=== PATIENT | male | born 1980 | race Caucasian/White ===

== ENCOUNTER 2021-08-16 20:03 | Emergency (ER) | payer BC ==
[~2021-08-16] VITALS: Ht 188 cm; Wt 95.2 kg
[~2021-08-16 20:03] MED LIST: CLOT10 SS; FLUC100 PO; METF500 PO; PARO20 PO; Zofran Odt4 MG SL
== END 2021-08-16 21:00 | disposition home or self-care (01) ==
LOC: ER 20:03
DX: S91.012A Laceration without foreign body, left ankle, initial encounter (principal); E11.9 Type 2 diabetes mellitus without complications; F17.200 Nicotine dependence, unspecified, uncomplicated; Z23 Encounter for immunization; Z79.84 Long term (current) use of oral hypoglycemic drugs; W25.XXXA Contact with sharp glass, initial encounter
CPT/HCPCS: 73610; 90471; 90714; 99283-25

== ENCOUNTER 2022-09-18 01:17 | Day surgery (SDC) | payer BC | END 2022-09-18 22:38 | disposition home or self-care (01) | LOC: WOUND 01:17 | DX: E11.621 Type 2 diabetes mellitus with foot ulcer (principal); L97.522 Non-pressure chronic ulcer of other part of left foot with fat layer exposed; I87.2 Venous insufficiency (chronic) (peripheral); L03.116 Cellulitis of left lower limb; I87.332 Chronic venous hypertension (idiopathic) with ulcer and inflammation of left lower extremity; E11.51 Type 2 diabetes mellitus with diabetic peripheral angiopathy without gangrene | CPT/HCPCS: A9270; G0463 ==

== ENCOUNTER 2022-10-02 01:21 | Day surgery (SDC) | payer BC | END 2022-10-02 22:45 | disposition home or self-care (01) | LOC: WOUND 01:21 | DX: E11.621 Type 2 diabetes mellitus with foot ulcer (principal); L97.522 Non-pressure chronic ulcer of other part of left foot with fat layer exposed; L97.422 Non-pressure chronic ulcer of left heel and midfoot with fat layer exposed; I87.312 Chronic venous hypertension (idiopathic) with ulcer of left lower extremity; E11.43 Type 2 diabetes mellitus with diabetic autonomic (poly)neuropathy; I87.2 Venous insufficiency (chronic) (peripheral) ==

== ENCOUNTER 2022-10-23 01:02 | Day surgery (SDC) | payer BC | END 2022-10-23 22:56 | disposition home or self-care (01) | LOC: WOUND 01:02 | DX: E11.621 Type 2 diabetes mellitus with foot ulcer (principal); L97.522 Non-pressure chronic ulcer of other part of left foot with fat layer exposed; I87.332 Chronic venous hypertension (idiopathic) with ulcer and inflammation of left lower extremity; I87.2 Venous insufficiency (chronic) (peripheral); E11.43 Type 2 diabetes mellitus with diabetic autonomic (poly)neuropathy | CPT/HCPCS: 99406; A9270 ==

== ENCOUNTER 2022-11-15 01:57 | Day surgery (SDC) | payer BC | END 2022-11-15 22:46 | disposition home or self-care (01) | LOC: WOUND 01:57 | DX: E11.621 Type 2 diabetes mellitus with foot ulcer (principal); L97.522 Non-pressure chronic ulcer of other part of left foot with fat layer exposed; I87.332 Chronic venous hypertension (idiopathic) with ulcer and inflammation of left lower extremity; I87.2 Venous insufficiency (chronic) (peripheral); E11.43 Type 2 diabetes mellitus with diabetic autonomic (poly)neuropathy; Z72.0 Tobacco use | CPT/HCPCS: 99406; A9270; G0463 ==

== ENCOUNTER 2022-11-20 00:31 | Day surgery (SDC) | payer BC | END 2022-11-20 23:04 | disposition home or self-care (01) | LOC: WOUND 00:31 | DX: E11.621 Type 2 diabetes mellitus with foot ulcer (principal); L97.522 Non-pressure chronic ulcer of other part of left foot with fat layer exposed; I87.332 Chronic venous hypertension (idiopathic) with ulcer and inflammation of left lower extremity; I87.2 Venous insufficiency (chronic) (peripheral); E11.43 Type 2 diabetes mellitus with diabetic autonomic (poly)neuropathy; Z72.0 Tobacco use | CPT/HCPCS: A9270 ==

== ENCOUNTER 2022-12-06 02:43 | Day surgery (SDC) | payer BC | END 2022-12-06 22:47 | disposition home or self-care (01) | LOC: WOUND 02:43 | DX: E11.621 Type 2 diabetes mellitus with foot ulcer (principal); L97.522 Non-pressure chronic ulcer of other part of left foot with fat layer exposed; I87.332 Chronic venous hypertension (idiopathic) with ulcer and inflammation of left lower extremity; I87.2 Venous insufficiency (chronic) (peripheral); E11.43 Type 2 diabetes mellitus with diabetic autonomic (poly)neuropathy; Z72.0 Tobacco use; I10 Essential (primary) hypertension | CPT/HCPCS: 99406; A9270 ==

== ENCOUNTER 2023-01-03 01:09 | Day surgery (SDC) | payer BC | END 2023-01-03 22:42 | disposition home or self-care (01) | LOC: WOUND 01:09 | DX: E11.621 Type 2 diabetes mellitus with foot ulcer (principal); L97.525 Non-pressure chronic ulcer of other part of left foot with muscle involvement without evidence of necrosis; I87.332 Chronic venous hypertension (idiopathic) with ulcer and inflammation of left lower extremity; I87.2 Venous insufficiency (chronic) (peripheral); E11.43 Type 2 diabetes mellitus with diabetic autonomic (poly)neuropathy; I10 Essential (primary) hypertension; Z72.0 Tobacco use | CPT/HCPCS: 99406; A9270; G0463 ==

== ENCOUNTER 2023-01-17 01:43 | Day surgery (SDC) | payer BC | END 2023-01-17 22:52 | disposition home or self-care (01) | LOC: WOUND 01:43 | DX: E11.621 Type 2 diabetes mellitus with foot ulcer (principal); L97.525 Non-pressure chronic ulcer of other part of left foot with muscle involvement without evidence of necrosis; L97.522 Non-pressure chronic ulcer of other part of left foot with fat layer exposed; I87.332 Chronic venous hypertension (idiopathic) with ulcer and inflammation of left lower extremity; I87.2 Venous insufficiency (chronic) (peripheral); E11.43 Type 2 diabetes mellitus with diabetic autonomic (poly)neuropathy; Z72.0 Tobacco use; I10 Essential (primary) hypertension | CPT/HCPCS: 99406; A9270; G0463 ==

== ENCOUNTER 2023-02-21 03:42 | Day surgery (SDC) | payer BC | END 2023-02-21 22:42 | disposition home or self-care (01) | LOC: WOUND 03:42 | DX: E11.621 Type 2 diabetes mellitus with foot ulcer (principal); L97.525 Non-pressure chronic ulcer of other part of left foot with muscle involvement without evidence of necrosis; L97.522 Non-pressure chronic ulcer of other part of left foot with fat layer exposed; I87.332 Chronic venous hypertension (idiopathic) with ulcer and inflammation of left lower extremity; I87.2 Venous insufficiency (chronic) (peripheral); E11.43 Type 2 diabetes mellitus with diabetic autonomic (poly)neuropathy; I10 Essential (primary) hypertension; Z72.0 Tobacco use | CPT/HCPCS: A9270; G0463 ==

== ENCOUNTER 2023-02-28 02:56 | Day surgery (SDC) | payer BC | END 2023-02-28 22:56 | disposition home or self-care (01) | LOC: WOUND 02:56 | DX: E11.621 Type 2 diabetes mellitus with foot ulcer (principal); I87.332 Chronic venous hypertension (idiopathic) with ulcer and inflammation of left lower extremity; I87.2 Venous insufficiency (chronic) (peripheral); E11.43 Type 2 diabetes mellitus with diabetic autonomic (poly)neuropathy; Z72.0 Tobacco use; I10 Essential (primary) hypertension; L97.929 Non-pressure chronic ulcer of unspecified part of left lower leg with unspecified severity | CPT/HCPCS: 99406; G0463 ==

== ENCOUNTER 2023-03-22 01:09 | Day surgery (SDC) | payer BC | END 2023-03-22 22:39 | disposition home or self-care (01) | LOC: WOUND 01:09 | DX: E11.621 Type 2 diabetes mellitus with foot ulcer (principal); L97.522 Non-pressure chronic ulcer of other part of left foot with fat layer exposed; I87.2 Venous insufficiency (chronic) (peripheral); I87.332 Chronic venous hypertension (idiopathic) with ulcer and inflammation of left lower extremity; E11.43 Type 2 diabetes mellitus with diabetic autonomic (poly)neuropathy; Z72.0 Tobacco use; I10 Essential (primary) hypertension | CPT/HCPCS: G0463 ==

== ENCOUNTER 2023-04-05 19:11 | Emergency (ER) | payer BC ==
[~2023-04-05] VITALS: Ht 188 cm; Wt 104.3 kg
[2023-04-05 19:47] VITALS: BP 151/102
[2023-04-05] MEDS ORDERED: ERYT.5TO LEFTEYE (21:56)
== END 2023-04-05 22:10 | disposition home or self-care (01) ==
LOC: ER 19:11
DX: S05.12XA Contusion of eyeball and orbital tissues, left eye, initial encounter (principal); W45.8XXA Other foreign body or object entering through skin, initial encounter; Y93.89 Activity, other specified; F17.200 Nicotine dependence, unspecified, uncomplicated
CPT/HCPCS: 70200; 99283-25; A9270

== ENCOUNTER 2023-04-12 03:13 | Day surgery (SDC) | payer BC ==
[~2023-04-12 03:13] MED LIST changes: +ERYT.5TO LEFTEYE
== END 2023-04-12 22:46 | disposition home or self-care (01) ==
LOC: WOUND 03:13
DX: E11.621 Type 2 diabetes mellitus with foot ulcer (principal); L97.522 Non-pressure chronic ulcer of other part of left foot with fat layer exposed; I87.2 Venous insufficiency (chronic) (peripheral); I87.332 Chronic venous hypertension (idiopathic) with ulcer and inflammation of left lower extremity; E11.43 Type 2 diabetes mellitus with diabetic autonomic (poly)neuropathy; Z72.0 Tobacco use; I10 Essential (primary) hypertension

== ENCOUNTER 2023-04-15 02:24 | Day surgery (SDC) | payer BC | END 2023-04-15 22:48 | disposition home or self-care (01) | LOC: WOUND 02:24 | DX: E11.621 Type 2 diabetes mellitus with foot ulcer (principal); I87.2 Venous insufficiency (chronic) (peripheral); L97.522 Non-pressure chronic ulcer of other part of left foot with fat layer exposed; Z72.0 Tobacco use; I10 Essential (primary) hypertension; E11.43 Type 2 diabetes mellitus with diabetic autonomic (poly)neuropathy | CPT/HCPCS: 99406; Q4133 ==

== ENCOUNTER 2023-04-17 02:54 | Day surgery (SDC) | payer BC | END 2023-04-17 22:50 | disposition home or self-care (01) | LOC: WOUND 02:54 | DX: E11.621 Type 2 diabetes mellitus with foot ulcer (principal); L97.525 Non-pressure chronic ulcer of other part of left foot with muscle involvement without evidence of necrosis; L97.522 Non-pressure chronic ulcer of other part of left foot with fat layer exposed; I87.332 Chronic venous hypertension (idiopathic) with ulcer and inflammation of left lower extremity; I87.2 Venous insufficiency (chronic) (peripheral); E11.43 Type 2 diabetes mellitus with diabetic autonomic (poly)neuropathy; I10 Essential (primary) hypertension; Z72.0 Tobacco use | CPT/HCPCS: 99406 ==

== ENCOUNTER 2023-04-24 02:26 | Day surgery (SDC) | payer BC | END 2023-04-24 23:08 | disposition home or self-care (01) | LOC: WOUND 02:26 | DX: E11.621 Type 2 diabetes mellitus with foot ulcer (principal); I87.332 Chronic venous hypertension (idiopathic) with ulcer and inflammation of left lower extremity; I87.2 Venous insufficiency (chronic) (peripheral); E11.43 Type 2 diabetes mellitus with diabetic autonomic (poly)neuropathy; Z72.0 Tobacco use; I10 Essential (primary) hypertension | CPT/HCPCS: A9270; Q4133 ==

== ENCOUNTER 2023-05-01 05:30 | Day surgery (SDC) | payer BC | END 2023-05-01 22:44 | disposition home or self-care (01) | LOC: WOUND 05:30 | DX: E11.621 Type 2 diabetes mellitus with foot ulcer (principal); L97.512 Non-pressure chronic ulcer of other part of right foot with fat layer exposed; I87.332 Chronic venous hypertension (idiopathic) with ulcer and inflammation of left lower extremity; I87.2 Venous insufficiency (chronic) (peripheral); E11.43 Type 2 diabetes mellitus with diabetic autonomic (poly)neuropathy; Z72.0 Tobacco use; I10 Essential (primary) hypertension | CPT/HCPCS: 99406 ==

== ENCOUNTER 2023-05-08 02:52 | Day surgery (SDC) | payer BC | END 2023-05-08 22:52 | disposition home or self-care (01) | LOC: WOUND 02:52 | DX: E11.621 Type 2 diabetes mellitus with foot ulcer (principal); L97.522 Non-pressure chronic ulcer of other part of left foot with fat layer exposed; I87.2 Venous insufficiency (chronic) (peripheral); I87.332 Chronic venous hypertension (idiopathic) with ulcer and inflammation of left lower extremity; E11.43 Type 2 diabetes mellitus with diabetic autonomic (poly)neuropathy; Z72.0 Tobacco use; I10 Essential (primary) hypertension | CPT/HCPCS: 99406 ==

== ENCOUNTER 2023-05-15 01:12 | Day surgery (SDC) | payer BC | END 2023-05-15 22:47 | disposition home or self-care (01) | LOC: WOUND 01:12 | DX: E11.621 Type 2 diabetes mellitus with foot ulcer (principal); L97.422 Non-pressure chronic ulcer of left heel and midfoot with fat layer exposed; L97.522 Non-pressure chronic ulcer of other part of left foot with fat layer exposed; I87.332 Chronic venous hypertension (idiopathic) with ulcer and inflammation of left lower extremity; I87.2 Venous insufficiency (chronic) (peripheral); E11.43 Type 2 diabetes mellitus with diabetic autonomic (poly)neuropathy; Z72.0 Tobacco use; I10 Essential (primary) hypertension | CPT/HCPCS: 99406; A9270 ==

== ENCOUNTER 2023-05-22 02:15 | Day surgery (SDC) | payer BC | END 2023-05-22 23:01 | disposition home or self-care (01) | LOC: WOUND 02:15 | DX: E11.621 Type 2 diabetes mellitus with foot ulcer (principal); L97.522 Non-pressure chronic ulcer of other part of left foot with fat layer exposed; I87.332 Chronic venous hypertension (idiopathic) with ulcer and inflammation of left lower extremity; I87.2 Venous insufficiency (chronic) (peripheral); E11.43 Type 2 diabetes mellitus with diabetic autonomic (poly)neuropathy; Z72.0 Tobacco use; I10 Essential (primary) hypertension | CPT/HCPCS: 99406 ==

== ENCOUNTER 2023-06-05 04:42 | Day surgery (SDC) | payer BC | END 2023-06-05 22:47 | disposition home or self-care (01) | LOC: WOUND 04:42 | DX: I87.332 Chronic venous hypertension (idiopathic) with ulcer and inflammation of left lower extremity (principal); E11.621 Type 2 diabetes mellitus with foot ulcer; E11.43 Type 2 diabetes mellitus with diabetic autonomic (poly)neuropathy; I10 Essential (primary) hypertension; Z72.0 Tobacco use | CPT/HCPCS: 99406; G0463 ==

== ENCOUNTER 2024-04-02 02:34 | Day surgery (SDC) | payer BC ==
[~2024-04-02 02:34] MED LIST changes: +OMEP20ER
== END 2024-04-03 22:47 | disposition home or self-care (01) ==
LOC: WOUND 02:34
DX: E11.621 Type 2 diabetes mellitus with foot ulcer (principal); L97.522 Non-pressure chronic ulcer of other part of left foot with fat layer exposed; F17.210 Nicotine dependence, cigarettes, uncomplicated; I87.332 Chronic venous hypertension (idiopathic) with ulcer and inflammation of left lower extremity; E11.43 Type 2 diabetes mellitus with diabetic autonomic (poly)neuropathy; E11.51 Type 2 diabetes mellitus with diabetic peripheral angiopathy without gangrene; I87.2 Venous insufficiency (chronic) (peripheral); I10 Essential (primary) hypertension
CPT/HCPCS: G0463

== ENCOUNTER 2024-04-09 03:13 | Day surgery (SDC) | payer BC | END 2024-04-09 22:54 | disposition home or self-care (01) | LOC: WOUND 03:13 | DX: E11.621 Type 2 diabetes mellitus with foot ulcer (principal); L97.522 Non-pressure chronic ulcer of other part of left foot with fat layer exposed; I87.332 Chronic venous hypertension (idiopathic) with ulcer and inflammation of left lower extremity; E11.43 Type 2 diabetes mellitus with diabetic autonomic (poly)neuropathy; I10 Essential (primary) hypertension; Z72.0 Tobacco use | CPT/HCPCS: 99406; G0463 ==

== ENCOUNTER 2024-04-17 03:47 | Day surgery (SDC) | payer BC | END 2024-04-17 22:58 | disposition home or self-care (01) | LOC: WOUND 03:47 | DX: E11.621 Type 2 diabetes mellitus with foot ulcer (principal); L97.522 Non-pressure chronic ulcer of other part of left foot with fat layer exposed; E11.43 Type 2 diabetes mellitus with diabetic autonomic (poly)neuropathy; I87.332 Chronic venous hypertension (idiopathic) with ulcer and inflammation of left lower extremity; I10 Essential (primary) hypertension; F17.200 Nicotine dependence, unspecified, uncomplicated | CPT/HCPCS: G0463 ==

== ENCOUNTER 2024-05-06 05:39 | Day surgery (SDC) | payer BC | END 2024-05-06 23:11 | disposition home or self-care (01) | LOC: WOUND 05:39 | DX: E11.621 Type 2 diabetes mellitus with foot ulcer (principal); L97.522 Non-pressure chronic ulcer of other part of left foot with fat layer exposed; I87.332 Chronic venous hypertension (idiopathic) with ulcer and inflammation of left lower extremity; E11.43 Type 2 diabetes mellitus with diabetic autonomic (poly)neuropathy; I10 Essential (primary) hypertension; Z72.0 Tobacco use | CPT/HCPCS: G0463 ==

== ENCOUNTER 2024-05-13 00:56 | Day surgery (SDC) | payer BC | END 2024-05-13 23:15 | disposition home or self-care (01) | LOC: WOUND 00:56 | DX: E11.621 Type 2 diabetes mellitus with foot ulcer (principal); L97.522 Non-pressure chronic ulcer of other part of left foot with fat layer exposed; I87.332 Chronic venous hypertension (idiopathic) with ulcer and inflammation of left lower extremity; E11.43 Type 2 diabetes mellitus with diabetic autonomic (poly)neuropathy; I10 Essential (primary) hypertension; F17.200 Nicotine dependence, unspecified, uncomplicated | CPT/HCPCS: A6196; G0463 ==

== ENCOUNTER 2024-05-21 01:15 | Day surgery (SDC) | payer BC | END 2024-05-21 22:46 | disposition home or self-care (01) | LOC: WOUND 01:15 | DX: E11.621 Type 2 diabetes mellitus with foot ulcer (principal); L97.522 Non-pressure chronic ulcer of other part of left foot with fat layer exposed; I87.332 Chronic venous hypertension (idiopathic) with ulcer and inflammation of left lower extremity; E11.43 Type 2 diabetes mellitus with diabetic autonomic (poly)neuropathy; Z72.0 Tobacco use; I10 Essential (primary) hypertension | CPT/HCPCS: A6196; G0463 ==

== ENCOUNTER 2024-06-25 02:12 | Day surgery (SDC) | payer BC | END 2024-06-26 02:45 | disposition home or self-care (01) | LOC: WOUND 02:12 | DX: E11.621 Type 2 diabetes mellitus with foot ulcer (principal); L97.522 Non-pressure chronic ulcer of other part of left foot with fat layer exposed; L97.529 Non-pressure chronic ulcer of other part of left foot with unspecified severity; I10 Essential (primary) hypertension; E11.43 Type 2 diabetes mellitus with diabetic autonomic (poly)neuropathy; Z72.0 Tobacco use ==

== ENCOUNTER 2024-07-12 01:08 | Emergency (ER) | payer BC ==
[~2024-07-12] VITALS: Ht 188 cm; Wt 97.5 kg
[~2024-07-12 01:08] MED LIST changes: -OMEP20ER; +OMEP20ER PO
[2024-07-12 01:27] VITALS: BP 139/93
[2024-07-12 02:03] LABS: BASOPHILS ABSOLUTE AUTO 0.03 K/mm3 (0.00-0.23); BASOPHILS PERCENT AUTO 0 % (0-2); EOSINOPHILS ABSOLUTE AUTO 0.09 K/mm3 (0.00-0.68); EOSINOPHILS PERCENT AUTO 1 % (0-6); Hematocrit 37.1 % (37.0-53.0); Hemoglobin 12.2 g/dL (13.5-17.5); IMMATURE GRAN ABSOLUTE AUTO 0.06 K/mm3 (0.00-0.10); IMMATURE GRAN PERCENT AUTO 1 % (0-1); LYMPHOCYTES ABSOLUTE AUTO 2.05 K/mm3 (0.84-5.20); LYMPHOCYTES PERCENT AUTO 17 % (21-46); MONOCYTES ABSOLUTE AUTO 1.14 K/mm3 (0.16-1.47); MONOCYTES PERCENT AUTO 10 % (4-13); Mean Corpuscular HGB 27.2 pg (26.0-34.0); Mean Corpuscular HGB Conc 32.9 g/dL (31.5-36.5); Mean Corpuscular Volume 83 fL (80-100); Mean Platelet Volume 8.2 fL (9.1-12.4); NEUTROPHILS PERCENT AUTO 72 % (41-73); Platelet Count 374 K/mm3 (150-400); RDW Coefficient Variation 13.4 % (11.7-14.2); RDW Standard Deviation 40.6 fL (35.1-46.3); Red Blood Cell Count 4.48 M/mm3 (4.30-5.90); White Blood Cell Count 11.87 K/mm3 (4.00-11.30)
[2024-07-12 02:19] LABS: Albumin, Blood 3.3 g/dL (3.4-5.0); Albumin/Globulin Ratio 0.7 (0.8-1.8); Bilirubin, Total 0.3 mg/dL (0.1-1.0); Bun/Creatinine Ratio 17.8 (12.0-20.0); Calcium, Blood 9.3 mg/dL (8.5-10.1); Creatinine, Blood 1.01 mg/dL (0.60-1.20); Globulin, Blood 4.5 g/dL (2.2-4.0); Total Protein, Blood 7.8 g/dL (6.4-8.2)
[2024-07-12 04:22] LABS: C-Reactive Protein, High Sens. 77.5 mg/dL (0.000-3.000)
== END 2024-07-12 04:15 | disposition left against medical advice (07) ==
LOC: ER 01:08
PROVIDERS: Emergency Medicine
DX: Z53.21 Procedure and treatment not carried out due to patient leaving prior to being seen by health care provider (principal)
CPT/HCPCS: 73630; 80053; 83605; 85025; 85651; 86141

== ENCOUNTER 2024-07-12 15:30 | Inpatient (IN) | payer BC ==
[~2024-07-12] VITALS: Ht 188 cm; Wt 98.1 kg
[2024-07-12 16:45] LABS: BASOPHILS ABSOLUTE AUTO 0.03 K/mm3 (0.00-0.23); BASOPHILS PERCENT AUTO 0 % (0-2); EOSINOPHILS ABSOLUTE AUTO 0.05 K/mm3 (0.00-0.68); EOSINOPHILS PERCENT AUTO 0 % (0-6); Hematocrit 39.4 % (37.0-53.0); Hemoglobin 12.4 g/dL (13.5-17.5); IMMATURE GRAN ABSOLUTE AUTO 0.06 K/mm3 (0.00-0.10); IMMATURE GRAN PERCENT AUTO 0 % (0-1); LYMPHOCYTES ABSOLUTE AUTO 0.93 K/mm3 (0.84-5.20); LYMPHOCYTES PERCENT AUTO 7 % (21-46); MONOCYTES ABSOLUTE AUTO 0.97 K/mm3 (0.16-1.47); MONOCYTES PERCENT AUTO 7 % (4-13); Mean Corpuscular HGB Conc 31.5 g/dL (31.5-36.5); Mean Corpuscular Volume 86 fL (80-100); Mean Platelet Volume 9.3 fL (9.1-12.4); NEUTROPHILS ABSOLUTE AUTO 11.88 K/mm3 (1.96-9.15); NEUTROPHILS PERCENT AUTO 85 % (41-73); Platelet Count 312 K/mm3 (150-400); RDW Coefficient Variation 13.5 % (11.7-14.2); RDW Standard Deviation 42.7 fL (35.1-46.3); White Blood Cell Count 13.92 K/mm3 (4.00-11.30)
[2024-07-12] MEDS ORDERED: NS 1,000 ML IV SCH ×3 (18:20→21:10)
[2024-07-12] MEDS ORDERED: Piperacillin/Tazobactam Sod 3.375 GM in NS 100 ML IV ONE (18:25)
[2024-07-12] MEDS ORDERED: FentaNYL Citrate 50 MCG/ML 2 ML Injection IV ONE (18:30)
[2024-07-12] MEDS ORDERED: Ondansetron HCl 2 MG / ML 2ML Vial IV ONE (18:30)
[2024-07-12] MEDS ORDERED: Vancomycin HCL 2,000 MG in NS 500 ML IV ONE (18:55)
[2024-07-12] MEDS ORDERED: Ondansetron HCl 2 MG / ML 2ML Vial IV PRN (20:20)
[2024-07-12] MEDS ORDERED: FLU VACC TS2024-25(6MOS UP)/PF 45 MCG/0.5 ML SYRINGE IM SCH (20:20)
[2024-07-12] MEDS ORDERED: Magnesium Hydroxide Conc 10 ML UDC PO PRN (20:20)
[2024-07-12] MEDS ORDERED: Bisacodyl 10 MG Supp PR PRN (20:25)
[2024-07-12] MEDS ORDERED: Lactobacil 2-S.Thermo-Bifido 1 1 Cap PO SCH (21:00)
[2024-07-12] MEDS ORDERED: Sennosides 8.6 MG Tab PO SCH (21:00)
[2024-07-12] MEDS ORDERED: Docusate Sodium 100 MG Cap PO SCH (21:00)
[2024-07-12] MEDS ORDERED: Famotidine 10 MG/ML 2ML Vial IV SCH (21:00)
[2024-07-12] MEDS ORDERED: HYDROmorphone HCl/Pf 1MG SYR ONE (21:40)
[2024-07-12] MEDS ORDERED: HYDROmorphone HCl/Pf 1MG SYR IV PRN (21:45)
[2024-07-13] VITALS (10 sets, daily range): BP systolic 115–159; BP diastolic 61–96
[2024-07-13] MEDS ORDERED: Piperacillin/Tazobactam Sod 3.375 GM in NS 100 ML IV SCH
[2024-07-13] MEDS ORDERED: Vancomycin HCL 1,500 MG in NS 250 ML IV SCH (06:00)
--- NOTE | 2024-07-13 06:01 | NUR ---
SHIFT SUMMARY JENNA WAS ALERT AND FULLY ORIENTED WHEN HE ARRIVED FROM THE ED AROUND 0400. PT ABLE TO STAND AND PIVOT ON RIGHT LEG. INDEPENDENT AT BASELINE. I&D PERFORMED IN ED FOR WOUND CULTURE. LEFT GREAT TOE BANDAGED WITH MODERATE SS EXUDATE TO BANDAGED TOE. OSTEOMYLITIS SUSPECTED, SURGERY CONSULTED. REGULAR METH USER. PT STATES THAT HE "HAD" DIABETES BUT HE "BEAT IT" AND IS DIET CONTROLLED. PT COMPLIANT, NO ACUTE EVENTS NO CHANGES TO CONDITION SINCE ARRIVAL TO UNIT.
[2024-07-13 06:22] LABS: BASOPHILS ABSOLUTE AUTO 0.03 K/mm3 (0.00-0.23); BASOPHILS PERCENT AUTO 0 % (0-2); EOSINOPHILS ABSOLUTE AUTO 0.09 K/mm3 (0.00-0.68); EOSINOPHILS PERCENT AUTO 1 % (0-6); Hematocrit 33.2 % (37.0-53.0); Hemoglobin 10.7 g/dL (13.5-17.5); IMMATURE GRAN ABSOLUTE AUTO 0.04 K/mm3 (0.00-0.10); IMMATURE GRAN PERCENT AUTO 0 % (0-1); LYMPHOCYTES ABSOLUTE AUTO 1.55 K/mm3 (0.84-5.20); LYMPHOCYTES PERCENT AUTO 16 % (21-46); MONOCYTES ABSOLUTE AUTO 0.95 K/mm3 (0.16-1.47); MONOCYTES PERCENT AUTO 10 % (4-13); Mean Corpuscular HGB Conc 32.2 g/dL (31.5-36.5); Mean Corpuscular Volume 84 fL (80-100); Mean Platelet Volume 8.5 fL (9.1-12.4); NEUTROPHILS ABSOLUTE AUTO 7.32 K/mm3 (1.96-9.15); NEUTROPHILS PERCENT AUTO 73 % (41-73); Platelet Count 315 K/mm3 (150-400); RDW Coefficient Variation 13.4 % (11.7-14.2); RDW Standard Deviation 41.4 fL (35.1-46.3); Red Blood Cell Count 3.96 M/mm3 (4.30-5.90); White Blood Cell Count 9.98 K/mm3 (4.00-11.30)
[2024-07-13 06:37] LABS: Bun/Creatinine Ratio 10.9 (12.0-20.0); Calcium, Blood 8.2 mg/dL (8.5-10.1); Creatinine, Blood 0.82 mg/dL (0.60-1.20)
[2024-07-13] MEDS ORDERED: Omeprazole 20 MG CapCR PO SCH (09:00)
[2024-07-13] MEDS ORDERED: Lidocaine HCl 2% 10 ML SDA ONE (11:54)
[2024-07-13] MEDS ORDERED: NS 500 ML IV SCH (12:50)
[2024-07-13] MEDS ORDERED: Bupivacaine 0.5% HCl 5 MG/ML 30MLVIAL ONE (13:08)
[2024-07-13] MEDS ORDERED: Lidocaine HCl 1% 30 ML SDV ONE (13:08)
--- NOTE | 2024-07-13 13:13 | NUR ---
PT HAS 20G IV TO LEFT AC THAT FLUSHES WELL AND FLOWS TO GRAVITY.
[2024-07-13] MEDS ORDERED: propofoL 20 ML IV ONE (13:21)
[2024-07-13] MEDS ORDERED: propofoL 40 ML IV ONE (13:23)
[2024-07-13] MEDS ORDERED: Midazolam HCl 1MG / ML 2ML Vial ONE (13:25)
--- NOTE | 2024-07-13 13:26 | NUR ---
1305 PT BROUGHT FROM FLOOR TO DAY SURGERY FOR PROCEDURE. History, Chart, Medications and Allergies reviewed before start of procedure. Lungs clear T/O to Auscultation. Patient confirms NPO status and agrees with scheduled surgery. Pre-Op teaching done. Pt verbalizes understanding. PT PARENTS AT BEDSIDE. PT BELONGINGS LEFT IN PERSONAL ROOM ON MEDICAL FLOOR.
--- NOTE | 2024-07-13 14:03 | NUR ---
07/13/24 1403 Ena Terrell PATIENT IS ON SCHEDULED ANTIBIOTICS, NO PREOP ANTIBIOTICS ORDERED PER .
--- NOTE | 2024-07-13 15:03 | NUR ---
PATIENT RETURNED TO ROOM 363 FROM RECOVERY FOLLOWING LEFT GREAT TOE AMPUTATION. PATIENT ARRIVED WITH ONE PERSON TRANSFER ON [facility]. PATIENT ABLE TO TRANSFER SELF FROM [facility] TO BED BY STAND PIVOT USING RIGHT LEG. PATIENT DENIES PAIN AT THIS TIME. PATIENTS DRESSING IS C/D/I. PATIENTS B/P TAKEN UPON RETURN. POST-OP VITALS TO BE DONE.
--- NOTE | 2024-07-13 15:09 | NUR ---
RESIDENT CONTACTED. CALL PLACED TO DR. WHITE-ANSWERED BY COVERING RESIDENT . QUESTIONS AND CONCERNS ADDRESSED WITH RESIDENT: PATIENT REPORTS HE SMOKES ABOUT 1/2 A PACK A DAY AND REQUESTING A NICOTEIN PATCH. PATIENT RETURNED FROM SURGERY AND REQUESTING TO BE ABLE TO EAT.PATIENT HAS NO ORDERS FOR BLOOD SUGARS AND PATIENT IS A TYPE [address] MIRELES TO PUT ORDERS IN APPROPRIATE FOR PATIENT.
--- NOTE | 2024-07-13 18:30 | NUR ---
CONTACTED. UNABLE TO GET IN CONTACT WITH RESIDENT DOCTOR. PATIENT IS IN NEED OF A NICOTEIN PATCH. ORDERED FOR A NICOTEIN PATCH-SEE ORDERS. PATIENT IS A T2DM AND IS NOT CURRENTLY ON BLOOD GLUCOSE CHECKS-ACHS CHECKS ADDED TO PATIENTS CARE PER DR. BHATIA.
[2024-07-13] MEDS ORDERED: Nicotine 14 MG PATCH TOP SCH (19:00)
[2024-07-13] MEDS ORDERED: LORazepam 1 MG Tab PO ONE (20:20)
[2024-07-14 03:34] VITALS: BP 139/86
[2024-07-14 05:14] LABS: BASOPHILS ABSOLUTE AUTO 0.04 K/mm3 (0.00-0.23); BASOPHILS PERCENT AUTO 1 % (0-2); EOSINOPHILS ABSOLUTE AUTO 0.15 K/mm3 (0.00-0.68); EOSINOPHILS PERCENT AUTO 2 % (0-6); Hemoglobin 10.5 g/dL (13.5-17.5); IMMATURE GRAN ABSOLUTE AUTO 0.02 K/mm3 (0.00-0.10); IMMATURE GRAN PERCENT AUTO 0 % (0-1); LYMPHOCYTES ABSOLUTE AUTO 1.93 K/mm3 (0.84-5.20); LYMPHOCYTES PERCENT AUTO 22 % (21-46); MONOCYTES ABSOLUTE AUTO 0.66 K/mm3 (0.16-1.47); MONOCYTES PERCENT AUTO 8 % (4-13); Mean Corpuscular HGB 26.9 pg (26.0-34.0); Mean Corpuscular HGB Conc 32.8 g/dL (31.5-36.5); Mean Corpuscular Volume 82 fL (80-100); Mean Platelet Volume 8.3 fL (9.1-12.4); NEUTROPHILS ABSOLUTE AUTO 5.87 K/mm3 (1.96-9.15); NEUTROPHILS PERCENT AUTO 68 % (41-73); Platelet Count 358 K/mm3 (150-400); RDW Coefficient Variation 13.2 % (11.7-14.2); RDW Standard Deviation 39.8 fL (35.1-46.3); Red Blood Cell Count 3.91 M/mm3 (4.30-5.90); White Blood Cell Count 8.67 K/mm3 (4.00-11.30)
--- NOTE | 2024-07-14 05:41 | NUR ---
SHIFT SUMMARY PT A&OX4 AND ANSWERS QUESTIONS APPROPRIATELY. PT POST OP FROM L GREAT TOE AMPUTATION DURING DAY SHIFT ON 07/13. PT RECEIVED ALL SCHEDULED AND PRN MEDICATIONS. PT VSS, NO COMPLAINTS OF CP/PRESSURE OR SOB. PT VOICES ADVERSE REACTIONS FROM ANESTHESIA VOCALIZING "JOLTING AWAKE IF I CLOSE MY EYES" FAMILY CONTACTED AND ATIVAN GIVEN. PT VERBALIZS A REDUCTION OF SYMPTOMS. PT SPENT MOST OF SHIFT IN BED WITH EYES CLOSED AND RESPIRATIONS EVEN AND UNLABORED. PT REPOSITIONED Q2HRS. PROPER FALL PRECAUTIONS IN PLACE AND CALL LIGHT IN REACH.
[2024-07-14 05:53] LABS: Alanine Aminotransfer (ALT/SGP 10 U/L (12-78); Albumin, Blood 2.6 g/dL (3.4-5.0); Albumin/Globulin Ratio 0.6 (0.8-1.8); Alk Phos 69 U/L (50-136); Anion Gap 8 mmol/L (3-11); Aspartate Aminotrans (AST/SGOT 12 U/L (12-37); Bilirubin, Total 0.2 mg/dL (0.1-1.0); Blood Urea Nitrogen 7 mg/dL (8-24); Bun/Creatinine Ratio 8.4 (12.0-20.0); CO2, Blood 26 mmol/L (21-32); Calcium, Blood 8.3 mg/dL (8.5-10.1); Chloride, Blood 109 mmol/L (98-108); Creatinine, Blood 0.83 mg/dL (0.60-1.20); Globulin, Blood 4.1 g/dL (2.2-4.0); Glomerular Filtration Rate 110 (60-); Glucose, Blood 132 mg/dL (70-99); Potassium, Blood 3.4 mmol/L (3.5-5.5); Sodium, Blood 140 mmol/L (136-145); Total Protein, Blood 6.7 g/dL (6.4-8.2); Vancomycin, Trough 11.9 ug/mL (5.0-10.0)
[2024-07-14] MEDS ORDERED: Potassium Chloride 20 MEQ TabCR PO ONE (07:00)
[2024-07-14 07:46] VITALS: BP 137/90
[2024-07-14] MEDS ORDERED: HYDROcodone 5-APAP 325 TAB PO PRN (10:35)
[2024-07-14] MEDS ORDERED: SULFAMETHOXAZO1 EAC1 PO (12:50)
[2024-07-14] MEDS ORDERED: Norco 5-325 Ta1 EACH PO (12:51)
[2024-07-14] MEDS ORDERED: LACT PO (12:52)
--- NOTE | 2024-07-14 13:30 | NUR ---
SHIFT SUMMARY AND DISCHARGE PATIENT ABLE TO AMBULATE WITH WALKER TO BR WITH STAND BY ASSIST. PATIENT NON WEIGHT TO L FOOT. EDUCATION PROVIDED TO PATIENT AND FAMILY ABOUT WOUND CARE, DIET, ELEVATING AND PAIN CONTROL. DISCHARGE INSTRUCTIONS REVIEWED WITH PATIENT AND FATHER. DISCHARGE INSTRUCTIONS AND RX FOR PAIN MEDS SENT WITH PATIENT. IV DC'D. BELONGINGS SENT HOME WITH PATIENT. ROOM CHECK DONE PRIOR TO DISCHARGE. PATIENT TAKEN OUT VIA WHEELCHAIR.
== END 2024-07-14 13:42 | disposition home or self-care (01) | DRG 853 ==
LOC: ER 15:30 → MEDS 20:17 → ERHOLD 20:17 → MEDS 07-13 04:33 → ENPENDDIS 07-14 12:07 → MEDS 07-14 13:42
PROVIDERS: Family Medicine; Podiatrist Foot & Ankle Surgery; Student in an Organized Health Care Education/Training Program; ADMIT Hospitalist
PROC: 3E03329 Introduction of Other Anti-infective into Peripheral Vein, Percutaneous Approach (ICD-10-PCS; 2024-07-12)
PROC: 0Y6N0Z9 Detachment at Left Foot, Partial 1st Ray, Open Approach (ICD-10-PCS; principal; 2024-07-13 13:30)
DX: A41.02 Sepsis due to Methicillin resistant Staphylococcus aureus (principal); A48.0 Gas gangrene; E11.52 Type 2 diabetes mellitus with diabetic peripheral angiopathy with gangrene; M86.8X7 Other osteomyelitis, ankle and foot; Z59.01 Sheltered homelessness; E11.69 Type 2 diabetes mellitus with other specified complication; E11.621 Type 2 diabetes mellitus with foot ulcer; L97.529 Non-pressure chronic ulcer of other part of left foot with unspecified severity; F17.210 Nicotine dependence, cigarettes, uncomplicated; E11.42 Type 2 diabetes mellitus with diabetic polyneuropathy; F15.10 Other stimulant abuse, uncomplicated; J44.9 Chronic obstructive pulmonary disease, unspecified; K21.9 Gastro-esophageal reflux disease without esophagitis; K44.9 Diaphragmatic hernia without obstruction or gangrene; D64.9 Anemia, unspecified; Z79.899 Other long term (current) drug therapy; Z98.890 Other specified postprocedural states; Z53.21 Procedure and treatment not carried out due to patient leaving prior to being seen by health care provider
CPT/HCPCS: 10060; 36415; 73630; 80048; 80053; 80202; 82947; 83036; 83605; 83735; 85025; 85651; 86140; 86141; 87040; 87070; 87071; 87075; 87077; 87147; 87186; 87205; 88305; 88311; 96365-59; 96367-59; 96375-59; 99284-25; A9270; J1171; J2003; J2250; J2405; J2543; J2704; J3010; J3370; J7030; J7040; J7050